=== PATIENT | male | born 1980 | race Caucasian/White ===

== ENCOUNTER 2017-05-02 17:22 | Emergency (ER) | payer OTHER ==
[~2017-05-02] VITALS: Ht 190.5 cm; Wt 168.3 kg
[~2017-05-02 17:22] MED LIST: LEVOFLOXACIN500 MG PO
== END 2017-05-02 17:56 | disposition home or self-care (01) ==
LOC: ED 17:22
DX: L08.9 Local infection of the skin and subcutaneous tissue, unspecified (principal); M79.662 Pain in left lower leg; Z79.899 Other long term (current) drug therapy; Z88.1 Allergy status to other antibiotic agents; Z91.018 Allergy to other foods

== ENCOUNTER 2022-02-27 15:38 | Emergency (ER) | payer MEDICARE ==
[~2022-02-27] VITALS: Wt 173.3 kg
[2022-02-27 16:27] LABS: HEMATOCRIT 32.1 % (42.0-52.0); MEAN CELL VOLUME 83.4 fl (80.0-94.0); MEAN CORPUSCULAR HGB 26.5 pg (27.0-31.0); MEAN CORPUSCULAR HGB CONC 31.8 g/dl (33.0-37.0); MEAN PLATELET VOLUME 10.5 fl (9.6-12.3); PLATELET COUNT AUTOMATED 157 10*3/uL (130-400); RED BLOOD COUNT 3.85 10*6/uL (4.50-5.90); RED CELL DISTRI WIDTH 14.6 % (0-14.5); WHITE BLOOD COUNT 10.2 10*3/uL (4.8-10.8)
[2022-02-27 16:28] LABS: MANUAL DIFF REFLEX YES
[2022-02-27 16:42] LABS: ALKALINE PHOSPHATASE 442 U/L (45-117); BUN 112 mg/dl (7-24); CHLORIDE 95 mmol/L (98-107); POTASSIUM 5.8 mmol/L (3.5-5.1); SGOT/AST 10 IU/L (3-35); SGPT/ALT < 6 U/L (12-78); SODIUM 134 mmol/L (136-145); TOTAL PROTEIN 7.4 gm/dL (6.4-8.2)
[2022-02-27 16:49] LABS: ATYPICAL LYMPHS 1 % (0-0); PLATELET SUFFICIENCY NORMAL (NORMAL); TOTAL CELLS COUNTED 100 #CELLS; TOXIC GRANULATION SLIGHT
[2022-02-27 16:50] LABS: OVALOCYTES FEW
== END 2022-02-27 19:00 | disposition home or self-care (01) ==
LOC: ED 15:38
PROVIDERS: Emergency Medicine
DX: U07.1 COVID-19 (principal); E87.5 Hyperkalemia; E11.22 Type 2 diabetes mellitus with diabetic chronic kidney disease; N18.6 End stage renal disease; Z99.2 Dependence on renal dialysis; Z88.1 Allergy status to other antibiotic agents; Z91.018 Allergy to other foods; Z79.2 Long term (current) use of antibiotics; Z89.512 Acquired absence of left leg below knee

== ENCOUNTER 2022-05-08 12:04 | Observation (INO) | payer MEDICARE ==
[~2022-05-08] VITALS: Ht 190.5 cm; Wt 182.9 kg
[~2022-05-08 12:04] MED LIST changes: +BUMETANIDE2 MG PO; +GABAPENTIN400 MG PO; +HUMALOG100 UNIT/1 SC; +HYDRALAZINE HYD50 MG PO; +MEROPENEM-500 MG/50 IV; +METOPROLOL SUCC25 M2 PO; +METOPROLOL TAR100 M1 PO; +MULTI-VITAMIN1 EACH PO; +NEURONTIN400 MG PO; +NYSTATIN1000000 UN MC; +OXYCODONE-ACET1 EACH PO; +PANTOPRAZOLE SO40 MG PO; +RENVELA800 MG PO; +THERAHONEY T; +VANCO 1 GR1 GM/250 M IV
[2022-05-08 12:20] VITALS: BP 97/40
[2022-05-08 12:36] LABS: BASO % 0.5 % (0.0-1.0); EOS # 0.3 10*3/uL (0.0-0.4); EOS % 3.8 % (1.0-4.0); HEMATOCRIT 31.4 % (42.0-52.0); LYMPH # 1.3 10*3/uL (1.3-4.4); LYMPH % 17.3 % (27.0-41.0); MEAN CELL VOLUME 89.5 fl (80.0-94.0); MEAN CORPUSCULAR HGB 25.6 pg (27.0-31.0); MEAN CORPUSCULAR HGB CONC 28.7 g/dl (33.0-37.0); MEAN PLATELET VOLUME 9.7 fl (9.6-12.3); MONO # 0.6 10*3/uL (0.1-1.0); MONO % 7.6 % (3.0-9.0); NEUT # 5.2 10*3/uL (2.3-7.9); NEUT % 70.5 % (47.0-73.0); PLATELET COUNT AUTOMATED 279 10*3/uL (130-400); RED BLOOD COUNT 3.51 10*6/uL (4.50-5.90); WHITE BLOOD COUNT 7.4 10*3/uL (4.8-10.8)
[2022-05-08 12:49] LABS: ACT PARTIAL THROMBO TIME 35.8 SECONDS (20.0-32.1); INTERNATIONAL NORM RATIO 1.2 (2.0-3.5)
[2022-05-08 12:50] LABS: CREATININE 7.69 mg/dL (0.70-1.30); POTASSIUM 5.8 mmol/L (3.5-5.1); TOTAL PROTEIN 7.2 gm/dL (6.4-8.2)
[2022-05-08 16:42] VITALS: BP 94/58
[2022-05-08 18:17] VITALS: BP 115/58
[2022-05-08 20:00] VITALS: BP 115/56
[2022-05-09] VITALS: BP 105/42
[2022-05-09 06:51] LABS: BASO # 0.1 10*3/uL (0.0-0.1); BASO % 0.8 % (0.0-1.0); EOS # 0.3 10*3/uL (0.0-0.4); EOS % 4.4 % (1.0-4.0); HEMATOCRIT 30.4 % (42.0-52.0); LYMPH # 0.9 10*3/uL (1.3-4.4); LYMPH % 14.4 % (27.0-41.0); MEAN CELL VOLUME 88.1 fl (80.0-94.0); MEAN CORPUSCULAR HGB 25.8 pg (27.0-31.0); MEAN CORPUSCULAR HGB CONC 29.3 g/dl (33.0-37.0); MEAN PLATELET VOLUME 9.7 fl (9.6-12.3); MONO # 0.5 10*3/uL (0.1-1.0); MONO % 7.9 % (3.0-9.0); NEUT # 4.4 10*3/uL (2.3-7.9); NEUT % 72.2 % (47.0-73.0); NUCLEATED RED BLOOD CELL 0.3 % (0.0-0.0); PLATELET COUNT AUTOMATED 246 10*3/uL (130-400); RED BLOOD COUNT 3.45 10*6/uL (4.50-5.90); RED CELL DISTRI WIDTH 16.9 % (0-14.5); WHITE BLOOD COUNT 6.1 10*3/uL (4.8-10.8)
[2022-05-09 06:58] LABS: ACT PARTIAL THROMBO TIME 37.5 SECONDS (20.0-32.1); INTERNATIONAL NORM RATIO 1.2 (2.0-3.5)
[2022-05-09 07:03] LABS: CREATININE 5.66 mg/dL (0.70-1.30)
[2022-05-09 07:06] LABS: POTASSIUM 4.8 mmol/L (3.5-5.1)
[2022-05-09 08:00] VITALS: BP 114/62
[2022-05-09 12:00] VITALS: BP 113/76
[2022-05-09] MEDS ORDERED: OXYCODONE-ACET1 EACH PO (12:03)
[2022-05-09] MEDS ORDERED: VANCO 1 GR1 GM/250 M IV (12:03)
== END 2022-05-09 15:15 ==
LOC: ED 12:04 → EDHOLD 14:43 → 5E 14:43 → EDHOLD 15:28 → 5E 17:06
PROVIDERS: Emergency Medicine; Student in an Organized Health Care Education/Training Program; ADMIT Internal Medicine; ATTEND Internal Medicine
DX: L03.311 Cellulitis of abdominal wall (principal); E87.5 Hyperkalemia; E11.22 Type 2 diabetes mellitus with diabetic chronic kidney disease; N18.6 End stage renal disease; R52 Pain, unspecified; D64.9 Anemia, unspecified; Z20.822 Contact with and (suspected) exposure to COVID-19; E87.1 Hypo-osmolality and hyponatremia; R74.8 Abnormal levels of other serum enzymes; E43 Unspecified severe protein-calorie malnutrition; E11.65 Type 2 diabetes mellitus with hyperglycemia; E11.40 Type 2 diabetes mellitus with diabetic neuropathy, unspecified; Z88.1 Allergy status to other antibiotic agents; Z88.2 Allergy status to sulfonamides; Z91.018 Allergy to other foods; Z99.2 Dependence on renal dialysis